=== PATIENT | female | born 1970 | race Caucasian/White ===

== ENCOUNTER 2017-06-14 10:32 | Emergency (ER) | payer OTHER ==
[2017-06-14 10:39] VITALS: BP 136/67; PULSE 89; TEMP 98.2; BMI 25.0
[2017-06-14] MEDS ORDERED: SODIUM CHLORIDE 1,000 ML IV STA (11:05)
[2017-06-14] MEDS ORDERED: ONDANSETRON 4 MG/2 ML VIAL IVPUSH ONE (11:05)
--- NOTE | 2017-06-14 11:12 | PDOC ---
History of Present Illness - General Chief Complaint: Nausea/Vomiting Stated Complaint: VOMITING,NAUSEA,DIZZINESS Time Seen by Provider: 06/14/17 10:56 History Source: Patient, Old Records Exam Limitations: No Limitations - History of Present Illness Initial Comments: 06/14/17 11:08 46-year-old female with no significant past medical history presents to the emergency Department with complaints of multiple episodes of dizziness, nausea and vomiting since 3 AM today. The patient states that she ate rice beans and chicken for dinner last night and felt otherwise well. The dizziness is described as the room spinning. She has never had these symptoms before. She denies recent URI, ear pain, headache. She denies abdominal pain, diarrhea, fevers, chills. Her last bowel movement was yesterday and it was normal. She is passing gas and has no history of prior abdominal surgery. She denies chest pain , shortness of breath. She has no sick contacts and no one else has similar symptoms at home. Her last menstrual period was 2 weeks ago and was normal. Past History - Past Medical History Allergies/Adverse Reactions: Allergies Allergy/AdvReac Type Severity Reaction Status Date / Time No Known Allergies Allergy Verified 06/14/17 10:34 Home Medications: Ambulatory Orders Meclizine HCl 25 mg PO TID PRN #30 tablet 06/14/17 Ondansetron [Zofran Odt -] 4 mg SL TID PRN #21 od.tablet 06/14/17 Other medical history: PT DENIES - Psycho/Social/Smoking Cessation Hx Anxiety: No Suicidal Ideation: No Smoking History: Never smoked Number of Cigarettes Smoked Daily: 0 Information on smoking cessation initiated: No Hx Alcohol Use: No Drug/Substance Use Hx: No Substance Use Type: None Review of Systems - Review of Systems Able to Perform ROS?: Yes Is the patient limited Lao proficient: No Constitutional: No: Symptoms Reported HEENTM: No: Symptoms Reported Respiratory: No: Symptoms reported Cardiac (ROS): No: Symptoms Reported ABD/GI: Yes: See HPI : No: Symptoms Reported Musculoskeletal: No: Symptoms Reported Integumentary: No: Symptoms Reported Neurological: Yes: Dizziness *Physical Exam - Vital Signs Last Vital Signs Temp Pulse Resp BP Pulse Ox 98.2 F 89 18 136/67 100 06/14/17 10:34 06/14/17 10:34 06/14/17 10:34 06/14/17 10:34 06/14/17 10:34 - Physical Exam Comments: 06/14/17 11:12 GENERAL: Well developed, well nourished. Awake and alert. No acute distress. HEENT: Normocephalic, atraumatic. PERRLA, EOMI. No conjunctival pallor. Sclera are non- icteric. Moist mucous membranes. Oropharynx is clear. There is no nystagmus. NECK: Supple. Full ROM. No JVD. No lymphadenopathy. CARDIOVASCULAR: Regular rate and rhythm. No murmurs, rubs, or gallops. Distal pulses are 2+ and symmetric. PULMONARY: No evidence of respiratory distress. Lungs clear to auscultation bilaterally. No wheezing, rales or rhonchi. ABDOMINAL: Soft. Non-tender. Non-distended. No rebound or guarding. No organomegaly. Normoactive bowel sounds. MUSCULOSKELETAL Normal range of motion at all joints. No bony deformities or tenderness. No CVA tenderness. EXTREMITIES: No cyanosis. No clubbing. No edema. No calf tenderness. SKIN: Warm and dry. Normal capillary refill. No rashes. No jaundice. NEUROLOGICAL: Alert, awake, appropriate. Cranial nerves 2-12 intact. Grossly non-focal exam. PSYCHIATRIC: Cooperative. Good eye contact. Appropriate mood and affect. ED Treatment Course - LABORATORY CBC & Chemistry Diagram: 06/14/17 11:30 06/14/17 11:30 Medical Decision Making - Medical Decision Making 06/14/17 11:07 46-year-old female with no significant past medical history presents to the emergency department with nausea and vomiting since 3 AM today. Differential diagnosis includes but is not limited to: Vertigo, electrolyte abnormality, dehydration, food poisoning, atypical presentation of ACS, toxic/metabolic derangement, . Plan: 1. Labs 2. EKG 3. IV fluids for hydration 4. Antiemetics and meclizine 5. Urine analysis and urine 6. Observe and reevaluate 06/14/17 12:19 Addendum: Labs were reviewed and are noted in the EMR. EKG shows NSR at 60 bpm with normal axis, intervals and no acute ST segment changes. The patient is feeling improved and wants to go home. She tolerated PO without nausea or vomiting. The paln is to discharg hoem with Rx for zofran and meclizine. Follow-up with PCP this week and return to the ED if Sx persist, worsen or new Sx arise. *DC/Admit/Observation/Transfer Diagnosis at time of Disposition: Dizziness, Vertigo - Discharge Dispostion Disposition: HOME Condition at time of disposition: Stable Admit: No - Prescriptions Prescriptions: Meclizine HCl 25 mg PO TID PRN #30 tablet PRN Reason: Vertigo Ondansetron [Zofran Odt -] 4 mg SL TID PRN #21 od.tablet PRN Reason: Nausea And/Or Vomiting - Patient Instructions Additional Instructions: You are being treated for vertigo. Prescriptions for zofran (anti-emetic to prevent vomiting and nausea) as well as meclizine (for the dizziness) has been sent to your pharmacy. Please follow-up with your primary care physician this week and return to the ED if your symptoms persist, worsen or new symptoms arise.
[2017-06-14] MEDS ORDERED: MECLIZINE HCL 25 MG TABLET (FP) PO ONE (11:13)
[2017-06-14] MEDS ORDERED: ONDANSETRON 4 MG/2 ML VIAL ONE (11:13)
[2017-06-14 11:17] LABS: PH,URINE 8.5 (4.5-8); URINE APPEARANCE Clear; URINE BILIRUBIN Negative (NEGATIVE); URINE BLOOD Negative (NEGATIVE); URINE GLUCOSE (UA) Negative (NEGATIVE); URINE KETONE Negative (NEGATIVE); URINE LEUK ESTERASE Negative (NEGATIVE); URINE NITRITE Negative (NEGATIVE); URINE PROTEIN Trace (NEGATIVE); URINE UROBILINOGEN 0.2 (0.2-1.0)
[2017-06-14] MEDS ORDERED: MECLIZINE HCL 25 MG TABLET (FP) ONE (11:17)
[2017-06-14 11:19] LABS: URINE COLOR AMBER
[2017-06-14 11:35] LABS: BASOPHIL 0.3 % (0-2.0); EOSINOPHIL 0.3 % (0-4.5); MCH 30.5 pg (25.7-33.7); MCHC 32.5 g/dl (32.0-36.0); MEAN PLT VOLUME 8.3 fl (7.5-11.1); NEUTROPHILS 77.6 % (42.8-82.8); PLATELET COUNT 289 K/MM3 (134-434); RDW 13.8 % (11.6-15.6); WHITE BLOOD COUNT 6.5 K/mm3 (4.0-10.8)
[2017-06-14 11:51] LABS: ALBUMIN 4.3 g/dl (3.5-5.0); ALK PHOS 49 U/L (32-92); ANION GAP 7 (8-16); BILIRUBIN,TOTAL 0.6 mg/dl (0.2-1.0); CALCIUM 9.3 mg/dl (8.4-10.2); CO2 25 mmol/L (22-28); CREATININE 0.7 mg/dl (0.6-1.3); GLUCOSE,RANDOM 116 mg/dl (74-106); PHOSPHOROUS 2.7 mg/dl (2.5-4.6); SGOT/AST 18 U/L (10-42); SGPT/ALT 13 U/L (10-40)
[2017-06-14 12:23] LABS: CPK 83 IU/L (26-192)
[2017-06-14 12:33] LABS: TROPONIN I (DFP) < 0.03 ng/ml (0.03-0.50)
--- NOTE | 2017-06-15 21:56 | EKG ---
Test Reason : Blood Pressure : / mmHG Vent. Rate : 059 BPM Atrial Rate : 059 BPM P-R Int : 166 ms QRS Dur : 090 ms QT Int : 476 ms P-R-T Axes : 048 013 043 degrees QTc Int : 471 ms SINUS BRADYCARDIA OTHERWISE NORMAL ECG NO PREVIOUS ECGS AVAILABLE Confirmed by YURY PROCTOR MD ([id number]) on 06/15/2017 9:56:09 PM Referred By: ALEE PARK Confirmed By:YURY PROCTOR MD
== END 2017-06-14 13:01 | disposition home or self-care (01) ==
LOC: FER 10:32
PROC: 3E033GC Introduction of Other Therapeutic Substance into Peripheral Vein, Percutaneous Approach (ICD-10-PCS; principal; 2017-06-14)
PROC: 3E0337Z Introduction of Electrolytic and Water Balance Substance into Peripheral Vein, Percutaneous Approach (ICD-10-PCS; 2017-06-14)
DX: R42 Dizziness and giddiness (principal)
CPT/HCPCS: 36415; 80053; 81003; 83690; 83735; 84100; 84484; 84703; 85025; 93005; 99283-25